=== PATIENT | male | born 1945 | race Caucasian/White ===

== ENCOUNTER 2018-04-18 14:56 | Emergency (ER) | payer OTHER ==
[~2018-04-18] VITALS: Ht 170.2 cm; Wt 76.4 kg
[2018-04-18 14:59] VITALS: TEMP 36.5; Ht 170.2 cm; Wt 76.4 kg
--- NOTE | 2018-04-18 15:34 | DIAGNOSTIC IMAGING REPORT ---
L WRIST W/NAVICULAR MIN 3 VIEWS CLINICAL HISTORY: Left wrist pain. COMPARISON: Left second finger radiographs February 09, 2008. FINDINGS: No acute fracture is identified. There is severe osteoarthritis of the left first carpometacarpal joint. Osteophytosis of the distal left radius and ulna is noted. Small metallic densities of the left wrist and hand were shown on exam of February 09, 2008. IMPRESSION: 1. No acute fracture or dislocation within the left wrist. 2. Small metallic densities of the left wrist and hand appear similar to study of February 09, 2008. These may reflect a metallic foreign bodies. No change. 3. Severe osteoarthritis of the left first carpometacarpal joint. Electronically signed by: Jesus Estrada M.D. 04/18/2018 3:32 PM Dictated Date/Time: 04/18/2018 3:30 PM
[2018-04-18] MEDS ORDERED: METF-384 PO ×2 (15:39)
[2018-04-18] MEDS ORDERED: CINN1CAP2 PO (15:50)
[2018-04-18] MEDS ORDERED: CHOL2000 PO (15:50)
[2018-04-18] MEDS ORDERED: INSDGIPEN SC (15:50)
[2018-04-18] MEDS ORDERED: ASPI81TA28 PO (15:50)
[2018-04-18] MEDS ORDERED: OMEG10007 PO (15:50)
[2018-04-18] MEDS ORDERED: LISI-725 PO (15:50)
[2018-04-18] MEDS ORDERED: LEVO100T7 PO (15:50)
[2018-04-18] MEDS ORDERED: DOCU100C PO (15:50)
[2018-04-18] MEDS ORDERED: CYAN100020 PO (15:50)
[2018-04-18] MEDS ORDERED: NVLGIPEN SC (15:50)
[2018-04-18] MEDS ORDERED: TAMS0.4C38 PO (15:50)
[2018-04-18] MEDS ORDERED: NVLGI/PEN SC ×2 (15:50)
[2018-04-18] MEDS ORDERED: TRAMADOL HCL 50 MG TAB PO STA (15:50)
--- NOTE | 2018-04-18 15:56 | EMERGENCY ROOM VISIT NOTE ---
ED Visit Note First contact with patient: 15:02 The patient was seen and examined with Jose Estevez PA-C. I agree with the history, physical and findings. Please see the note for disposition and details.
[2018-04-18] MEDS ORDERED: TRAMADOL HCL 50 MG HOME PACK PO ONE (16:00)
[2018-04-18] MEDS ORDERED: TRAM-10 PO (16:05)
[2018-04-18 16:47] VITALS: BP 131/66; PULSE 71; O2SAT 100
--- NOTE | 2018-04-18 23:42 | EMERGENCY ROOM VISIT NOTE ---
History First contact with patient: 15:02 Chief Complaint: WRIST PAIN Stated Complaint: POSSIBLE BROKEN WRIST History of Present Illness The patient is a 72 year old male who presents to the Emergency Room with complaints of left wrist pain. Patient reports that he was maneuvering a boat this past Thursday and twisted his wrist. The patient reports persistent pain and swelling. He denies any pain extending into the forearm, and denies any paresthesias or numbness of the left hand or fingers. He rates his pain a 9 out of 10. The patient is right-hand dominant. Review of Systems 10 system review was performed and was negative except for pertinent positives and negatives as indicated in history of present illness Past Medical/Surgical History Medical Problems: (1) Diabetes (2) Osteoarthritis Family History Unremarkable Social History Smoking Status: Never Smoker Alcohol Use: none Marital Status: Housing Status: lives with family Occupation Status: retired Current/Historical Medications Scheduled Aspirin (Aspirin Ec), 162 MG PO DAILY Cholecalciferol (Vitamin D3), 2,000 INTER.UNIT PO DAILY Cinnamon (Cinnamon), 1,000 MG PO DAILY Cyanocobalamin (Vitamin B12), 1,000 MCG PO DAILY Docusate Sodium (Stool Softener), 100 MG PO DAILY Fish Oil ([place]bury-3), 1 CAP PO DAILY Insulin Aspart (Novolog Flexpen), 8 UNITS SC WITH BREAKFAST Insulin Aspart (Novolog Flexpen), 7 UNITS SC WITH LUNCH Insulin Aspart (Novolog Flexpen), 8 UNITS SC WITH DINNER Insulin Glargine (Lantus Solostar), 25 UNITS SC DAILY Levothyroxine Sodium (Levothyroxine Sodium), 100 MCG PO DAILY Lisinopril (Zestril), 20 MG PO DAILY Metformin Hcl (Glucophage), 500 MG PO AFTERNOON Metformin Hcl (Glucophage), 1,000 MG PO BIDM Tamsulosin Hcl (Flomax), 0.4 MG PO DAILY Scheduled PRN Tramadol (Ultram), 1 TAB PO Q4H PRN for Pain Physical Exam Vital Signs Date Time Temp Pulse Resp B/P (MAP) Pulse Ox O2 Delivery O2 Flow Rate FiO2 04/18/18 16:47 71 20 131/66 100 04/18/18 14:59 36.5 79 18 133/67 97 Room Air Physical Exam CONSTITUTIONAL: Healthy and well nourished. Alert and oriented X 3 with positive affect. Patient does not appear in any significant distress on exam. HEENT: Normocephalic, atraumatic. Pupils equal, round and reactive. NECK: Full active range of motion without discomfort. MUSCULOSKELETAL: Examination of the left wrist does not show any obvious soft tissue edema or ecchymosis. He is notably tender over the ulnar aspect of the wrist. He has no focal tenderness over the distal radius or anatomic snuffbox. He has limited range of motion of the first CMC joint. Capillary refill of the fingers is less than 2 seconds. INTEGUMENTARY: No rash or other significant dermatologic conditions noted. NEUROLOGIC: Left hand and fingers are sensory intact. Medical Decision & Procedures ER Provider Diagnostic Interpretation: My interpretation of left wrist x-rays does not show any obvious fractures or carpal dislocations. The patient has severe CMC degeneration, and multiple metallic foreign bodies noted. Radiologist report is as follows: L WRIST W/NAVICULAR MIN 3 VIEWS CLINICAL HISTORY: Left wrist pain. COMPARISON: Left second finger radiographs February 09, 2008. FINDINGS: No acute fracture is identified. There is severe osteoarthritis of the left first carpometacarpal joint. Osteophytosis of the distal left radius and ulna is noted. Small metallic densities of the left wrist and hand were shown on exam of February 09, 2008. IMPRESSION: 1. No acute fracture or dislocation within the left wrist. 2. Small metallic densities of the left wrist and hand appear similar to study of February 09, 2008. These may reflect a metallic foreign bodies. No change. 3. Severe osteoarthritis of the left first carpometacarpal joint. Medications Administered Medications (Trade) Dose Ordered Sig/[facility] Route Start Time Stop Time Status Last Admin Dose Admin Tramadol HCl (Ultram Home Pack) 1 homepack UD ONCE PO 04/18/18 16:00 04/18/18 16:01 DC 04/18/18 16:15 1 HOMEPACK Tramadol HCl (Ultram Tab) 50 mg ONE STAT PO 04/18/18 15:50 04/18/18 15:52 DC 04/18/18 16:16 50 MG ED Course Patient history and physical exam were performed. Nurse's notes were reviewed. Vital signs were reviewed and were normal. The patient refused any analgesics on initial exam. X-rays of the left wrist did not show any acute findings. Significant first CMC arthrosis is noted. The patient reports that he has been wearing a wrist brace at home and has persistent discomfort because his wrist is moving too much. I did elect to order an Ortho-Glass volar splint for better support. Neurovascular check after splint placement was normal. The patient was encouraged alternate ibuprofen and Tylenol as needed for pain. The patient reports that he has also done this at home without significant relief, but does not want anything strong for the pain. He was provided a home pack and prescription for Ultram. The patient was encouraged to follow-up with orthopedics for further reevaluation and management. The patient was happy with plan of care, and voiced understanding of all discharge instructions. The patient was also seen and examined by Dr. Pelaez, ED attending physician who agrees with workup and plan of care. Medical Decision [place] Drug Monitoring Program Search Results: patient reviewed within database, no issues identified Medication Reconcilliation Current Medication List: was personally reviewed by me Blood Pressure Screening Patient's blood pressure: Normal blood pressure Impression Primary Impression: Left wrist sprain Departure Information Prescriptions Tramadol (Ultram) 50 Mg Tab 1 TAB PO Q4H Y for Pain, #15 TAB For Initial Treatment Prov: Jose Estevez PA 04/18/18 Referrals Rosa Maria Stewart M.D. (PCP) Patient Instructions My [facility] Problem Qualifiers Primary Impression: Left wrist sprain Encounter type: initial encounter Qualified Codes: S63.502A - Unspecified sprain of left wrist, initial encounter
== END 2018-04-18 16:48 | disposition home or self-care (01) ==
LOC: C.EDB 14:58 → C.EDD 16:48
DX: S63.502A Unspecified sprain of left wrist, initial encounter (principal); X50.0XXA Overexertion from strenuous movement or load, initial encounter; Y93.89 Activity, other specified; E11.9 Type 2 diabetes mellitus without complications; M19.90 Unspecified osteoarthritis, unspecified site; Z79.82 Long term (current) use of aspirin; Z79.4 Long term (current) use of insulin; Z79.84 Long term (current) use of oral hypoglycemic drugs; Z79.899 Other long term (current) drug therapy